=== PATIENT | male | born 1980 | race African-American/Black ===

== ENCOUNTER 2024-07-07 10:29 | Outpatient (REF) | payer MEDICAID, SELFPAY ==
--- NOTE | ~2024-07-07 | XR_ITS ---
EXAMINATION: XR SHOULDER, RIGHT CLINICAL INFORMATION: Chronic right shoulder pain COMPARISON: None available. TECHNIQUE: AP external rotation, Grashey, scapular Y, and axillary views of the right shoulder. FINDINGS: The bones and soft tissues are normal. No fracture. Glenohumeral and acromioclavicular alignment is anatomic with normal joint space. No abnormal soft tissue calcifications. XR/XR shoulder RT min 2V IMPRESSION: Normal right shoulder. Electronically signed by: Jacky Underwood MD 07/07/2024 04:00 PM EDT
== END 2024-07-07 10:30 | disposition home or self-care (01) ==
LOC: HO.HHCX 10:29
PROVIDERS: Visit Provider Internal Medicine Geriatric Medicine
DX: M25.511 Pain in right shoulder (principal)
CPT/HCPCS: 73030

== ENCOUNTER 2024-08-02 09:06 | Outpatient (AMB) | payer MEDICAID, SELFPAY ==
--- NOTE | 2024-08-02 09:11 | MHC.OFFVIS ---
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 Patient reports his pain has been present for about 10 months, states after carried his son. His pain had gotten worse while working. He has pain with ROM, states feeling a tearing sensation in his shoulder. Denies numbness or tingling. Naproxen caused stomach upset so he d/c medication. 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 He reports his pain started after carrying his son and worsened with activities at work. He currently states he has pain and tearing sensation in his right shoulder that is aggravated with ROM, sleeping, laying on sides, stair use and pushing activities. He denies any numbness or tingling. [facility] Social History (Updated 08/02/24 @ 09:19 by Kayla Chino [facility]) Patient Tobacco Use Status: Never used Tobacco Current occupational status: employed Current occupation: [employer], right hand dominant Review of Systems Const All systems reviewed & are unremarkable except as noted in HPI and below Physical Exam Vital Signs: BMI result Body Mass Index 26.1 Const General: cooperative, healthy appearing, comfortable, no acute distress, well developed and alert Orientation/consciousness: patient oriented x3 HEENT Head: Yes normal to inspection, Yes normocephalic and Yes atraumatic Eyes General: appearance normal, both eyes and all related structures Resp Effort & Inspection: normal respiratory effort and able to speak in complete sentences Cardio Rate: regular rate Peripheral pulses: Peripheral pulses 2+ throughout GI Palpation (GI): Soft to palpation Skin Lesions: no lesions Rashes: no rashes Neuro General: patient oriented x3 Extrem Other: Right shoulder: Normal to inspection. Tenderness over the bicipital groove and along the deltoid region of the shoulder. Forward flexion to 175, external rotation to 90, internal rotation to S1. 5/5 RTC strength. Negative Haro and cross body abduction. NVI. ? Results Reviewed Results Reviewed: Xrays were obtained in the office today and personally reviewed by me of the right shoulder negative for acute abnormalities. Assessment & Plan Assessment & Plan (1) Bursitis of right shoulder: Code(s): M75.51 - Bursitis of right shoulder Category: Medical Plan We discussed options which include PT, NSAIDs and injections. The patient will defer on the injection today and proceed with PT and NSAIDs. If symptoms persist, she will contact me for an injection, otherwise, PRN. Orders: Orders PT Evaluation and Treatment Today M75.51 - Bursitis of right shoulder Patient Instructions: Scribed for Teresa Barahona PA-C, by Nikita Diaz medical physics researcher, on 08/02/2024 at 8:45 AM EST.? I, Teresa Barahona PA-C, have personally reviewed and agree with the information entered by the scribe. Coding Level of Care Code New Pt Level 3 (05637) Complex EM visit Add On G2211 Diagnoses Bursitis of right shoulder M75.51
[2024-08-02 09:16] VITALS: BMI 26.1
== END 2024-08-02 09:58 | disposition home or self-care (01) ==
LOC: HO.HOS 09:06
PROVIDERS: PCP Internal Medicine Geriatric Medicine; Visit Provider Physician Assistant
DX: M75.51 Bursitis of right shoulder (principal)
CPT/HCPCS: 99203

== ENCOUNTER → 2024-08-02 09:06 | Outpatient (BNVA) | payer MEDICAID, SELFPAY | PROVIDERS: PCP Internal Medicine Geriatric Medicine; Visit Provider Physician Assistant | DX: M75.51 Bursitis of right shoulder (principal) | CPT/HCPCS: 99212 ==

== ENCOUNTER 2024-11-29 09:54 | Outpatient (REF) | payer MEDICAID, SELFPAY ==
--- OUTSIDE RECORDS SUMMARY | 2024-11-29 11:28 | XMS_ITS | Encounter Summary ---
Author Organization [employer] Address [address] [facility] [address] [place] [address] Care Team Providers Care Hospitalist Name Role Phone Name, Dayton XIAO Primary Care Provider [phone] Reason for Visit * Reason Comments initial visit Encounter Details Date Type Department Care Team (Late st Contact Info) Description 11/29/2024 9:00 AM EST Office Visit [facility] [address], [place] [id number] Name, MD Dayton [address] [place] [address] Elevated blood pressure reading (Primary Dx); Screening for diabetes mellitus; Screening for cholesterol level; Screen for STD (sexually transmitted disease); Screening for prostate cancer Social History Tobacco Use Types Packs/Day Years Used Date Smoking Tobacco: Never Passive Smoke Exposure: Never Smokeless Tobacco: Never Tobacco Cessation:Counseling Given: Not Answered Alcohol Use Standard Drinks/Week Comments Yes 0 (1 standard drink = 0.6 oz pur e alcohol) rarely Depression Answer Date Recorded Patient Health Questionnaire-9 Score 0 11/29/2024 Patient Health Questionnaire-9 Score 0 11/29/2024 Last PHQ-9: Questionnaire Data Not on file 0 11/29/2024 Housing Stability Answer Date Recorded What is your housing situati on today? I do not have housing (Staying with others, in a hotel, in a prison, living outside on the street, on a beach, in a car, or in a park 11/29/[address] you li ve. Do you have problems with any of the following? Inadequate heat 11/29/2024 Food Insecurity Answer Date Recorded Within the past 12 months, y ou worried that your food would run out before you got money to buy more: Never True 11/29/2024 Within the past 12 months,th e food you bought just didn't last and you didn't have enough money to get more: Never True 01/2025 Transportation Answer Date Recorded In the past 12 months, has l ack of transportation kept you from medical appts, meetings, work or from getting things needed for daily living? No 11/29/2024 Utilities Answer Date Recorded In the past 12 months, has t he electric, gas, oil or water company threatened to shut off services in your home? No 11/29/2024 Depression Answer Date Recorded Patient Health Questionnaire-2 Score 0 11/29/2024 Internet Access Answer Date Recorded Internet Access Q1 Yes 11/29/2024 Internet Access Q2 Not on file 11/29/2024 Sex and Gender Information Value Date Recorded Sex Assigned at Male 03/01/2024 9:18 AM EDT Legal Sex Male 9:01 AM EDT Gender Identity Male 03/01/2024 9:18 AM EDT Sexual Orientation Don't know 03/01/2024 9: 18 AM EDT Occupation Industry Job Start Date Job End Date [employer] Not on file Not on file Not on file documented as of this encounter Last Filed Vital Signs Vital Sign Reading Time Taken Comments Blood Pressure 131/89 11/29/2024 9:23 AM EST Pulse 62 11/29/2024 9:11 AM EST Temperature 36.6 ??C (97.9 ??F) 11/29/2024 9:11 AM ES T Respiratory Rate 21 11/29/2024 9:11 AM EST Oxygen Saturation 98% 11/29/2024 9:11 AM EST Inhaled Oxygen Concentration - - Weight 80.8 kg (178 lb 3.2 oz) 11/29/2024 9:11 A M EST Height 177.8 cm (5' 10 ) 11/29/2024 9:11 AM EST Body Mass Index 25.57 11/29/2024 9:11 AM EST documented in this encounter Progress Notes * Dayton Daigle MD - 11/29/2024 9:00 AM EST Subjective Patient ID: Adam Bryant is a 44 y.o. male who presents for initial visit. Patient comes to establish primary care. The patient speaks [place] Creole and he is seen with the help of an motor vehicle parts interpreter. He is asymptomatic. Initial blood pressure was elevated but repeat was much better. The patient does not smoke cigarettes, does not drink alcohol, does not use illicit drugs. He works at a local [employer] for [employer]. The patient is and monogamous. She denies any previous surgeries. He does not know of any family history of any medical problems. He does not use any medications. Today he agreed with Tdap and flu vaccinations. He also agreed with evaluation with fasting blood work. Review of Systems Constitutional: Negative for chills, fatigue and fever. HENT: Negative for sore throat. Respiratory: Negative for cough, chest tightness and shortness of breath. Cardiovascular: Negative for chest pain, palpitations and leg swelling. Gastrointestinal: Negative for abdominal pain and blood in stool. Visit Vitals BP 131/89 Pulse 62 Temp 97.9 ??F (36.6 ??C) (Temporal) Resp 21 Ht 5' 10 (1.778 m) Wt 178 lb 3.2 oz (80.8 kg) SpO2 98% BMI 25.57 kg/m?? Smoking Status Never BSA 2 m?? Objective Physical Exam Constitutional: Appearance: Normal appearance. Cardiovascular: Rate and Rhythm: Normal rate and regular rhythm. Heart sounds: No murmur heard. Pulmonary: Effort: Pulmonary effort is normal. No respiratory distress. Breath sounds: No wheezing, rhonchi or rales. Abdominal: Palpations: Abdomen is soft. Tenderness: There is no abdominal tenderness. Musculoskeletal: Right lower leg: No edema. Left lower leg: No edema. Neurological: Mental Status: He is alert. Assessment/Plan Diagnoses and all orders for this visit: Elevated blood pressure reading Comments: Repeat blood pressure is better. I did not recommend any medications. He recommended evaluation with fasting blood work listed below. Tdap and flu vaccination today. Will contact the patient with theresults of the testing for further recommendations as needed. Screening for diabetes mellitus - CBC auto differential; Future - Comprehensive Metabolic Panel; Future Screening for cholesterol level - Lipid Panel, Standard; Future Screen for STD (sexually transmitted disease) - HIV-1/2 Antigen and Antibodies, Fourth Generation, with Reflexes; Future - RPR (Monitor) with Reflex to Titer; Future - Hepatitis C Antibody with Reflex to HCV, RNA, Quantitative, Real-Time PCR; Future - Hepatitis B surface antigen, EIA; Future - Hepatitis B Surface Antibody, Qualitative; Future - Chlamydia/N. Gonorrhoeae RNA, TMA, Urogenitial Screening for prostate cancer - PSA,Total; Future Other orders - Flu vaccine greater than or equal to 6 months old, preservative free IM - Tdap vaccine greater than or equal to 7 years old IM documented in this encounter Plan of Treatment Scheduled Orders Name Type Priority Associated Diagnoses Orde r Schedule CBC auto differential Lab Routine Screening for diabetes mellitus Expected: 11/29/2024 (Approximate), Expires: 11/29/2025 Comprehensive Metabolic Panel Lab Routine Screening for diabetes mellitus Expected: 11/29/2024 (Approximate), Expires: 11/29/2025 Lipid Panel, Standard Lab Routine Screening for cholesterol level Expected: 11/29/2024 (Approximate), Expires: 11/29/2025 PSA,Total Lab Routine Screening for prostate cancer Expected: 11/29/2024, Expires: 11/29/2025 HIV-1/2 Antigen and Antibodies, Fourth Generation, with Reflexes Lab Routine Screen for STD (sexually transmitted disease) Expected: 11/29/2024 (Approximate), Expires: 11/29/2025 RPR (Monitor) with Reflex to??Titer Lab Routine Screen for STD (sexually transmitted disease) Expected: 11/29/2024, Expires: 11/29/2025 Hepatitis C Antibody with Reflex to HCV, RNA, Quantitative, Real-Time PCR Lab Routine Screen for STD (sexually transmitted disease) Expected: 11/29/2024, Expires: 11/29/2025 Hepatitis B surface antigen, EIA Lab Routine Screen for STD (sexually transmitted disease) Expected: 11/29/2024 (Approximate), Expires: 11/29/2025 Hepatitis B Surface Antibody, Qualitative Lab Routine Screen for STD (sexually transmitted disease) Expected: 11/29/2024 (Approximate), Expires: 11/29/2025 Chlamydia/N. Gonorrhoeae RNA, TMA, Urogenitial Microbiology Routine Screen for STD (sexually transmitted disease) Ordered: 11/29/2024 documented as of this encounter Visit Diagnoses Diagnosis Elevated blood pressure reading- Primary Elevated blood pressure reading without diagnosis of hypertension Screening for diabetes mellitus Screening for cholesterol level Screen for STD (sexually transmitted disease) Screening examination for venereal disease Screening for prostate cancer Special screening for malignant neoplasm of prostate documented in this encounter Additional Health Concerns Assessment Noted Time PHQ-9 Depression Total Score: 0 11/30/19 9:40 AM EST documented as of this encounter Care Teams Hospitalist Relationship Specialty Start Date End Date Name, MD [place] [address] [place] [address] PCP - General Internal Medicine 11/29/24 documented as of this encounter
--- OUTSIDE RECORDS SUMMARY | 2024-11-29 11:28 | XMS_ITS | Encounter Summary ---
Author Organization [employer] Address [address] [facility] [address] [place] [address] Care Team Providers Care Associate Agent Insurance Sales Name Role Phone Unavailable Primary Care Provider Unavailabl e Reason for Visit * Reason Comments Pre-visit Planning SDOH unable to reach LVM Encounter Details Date Type Department Care Team (Late st Contact Info) Description 11/22/2024 Patient Outreach [facility] [address] [place] [address] Name, MD [place] [address] [place] [address] Pre-visit Planning (SDOH unable to reach LVM ) Social History Tobacco Use Types Packs/Day Years Used Date Smoking Tobacco: Never Passive Smoke Exposure: Never Smokeless Tobacco: Never Alcohol Use Standard Drinks/Week Comments Never 0 (1 standard drink = 0.6 oz pur e alcohol) Sex and Gender Information Value Date Recorded Sex Assigned at Male 03/01/2024 9:18 AM EDT Legal Sex Male 9:01 AM EDT Gender Identity Male 03/01/2024 9:18 AM EDT Sexual Orientation Don't know 03/01/2024 9: 18 AM EDT documented as of this encounter Progress Notes * Mikayla Corona - 11/22/2024 1:40 PM EST MIRANDA Dumont placed outbound call to patient to complete pre-visit planning. No answer at this time. Patient name and were not confirmed. CC left voicemail requesting return call. Direct contactinformation provided. documented in this encounter Plan of Treatment Not on file documented as of this encounter Visit Diagnoses Not on filedocumented in this encounter
--- OUTSIDE RECORDS SUMMARY | 2024-11-29 11:28 | XMS_ITS | Encounter Summary ---
Author Organization [employer] Address [address] [facility] [address] [place] [address] Care Team Providers Care Head Of Business Development Name Role Phone Name, Dayton XIAO Primary Care Provider [phone] Encounter Details Date Type Department Care Team (Latest Contact Info) Description 11/29/2024 Travel Social History Tobacco Use Types Packs/Day Years Used Date Smoking Tobacco: Never Passive Smoke Exposure: Never Smokeless Tobacco: Never Alcohol Use Standard Drinks/Week Comments Yes 0 [...] with others, in a hotel, in a assisted, living outside on the street, on a [...] on file documented as of this encounter Plan of Treatment Not on file documented as of this encounter Visit Diagnoses Not on filedocumented in this encounter Additional Health Concerns Assessment Noted Time PHQ-9 Depression Total Score: 0 11/30/19 9:40 AM EST documented as of this encounter Care Teams Head Of Business Development Relationship Specialty Start Date End Date Name, MD [place] [address] [place] [address] PCP - General Internal Medicine 11/29/24 documented as of this encounter
--- OUTSIDE RECORDS SUMMARY | 2024-11-29 11:28 | XMS_ITS | Clinical Summary ---
Author Organization [employer] Address [address] [facility] [address] [place] [address] Care Team Providers Care Stamp Clerk Name Role Phone NameDayton MD Primary Care Provider [phone] Allergies No known active allergies Encounters Date Type Department Care Team Description 11/29/2024 9:00 AM EST Office Visit [facility] [address] [place] [id number] [place] Daigle MD Elevated blood pressure reading (Primary Dx); Screening for diabetes mellitus; Screening for cholesterol level; Screen for STD (sexually transmitted disease); Screening for prostate cancer 11/29/2024 Travel 11/22/2024 Patient Outreach [facility] [address] [place] [address] [place] Daigle MD Pre-visit Planning (SDOH unable to reach [facility] ) 09/21/2024 Telephone [facility] [address] [place] [address] [phone] Antoine Briceño MD New patient appt. 08/31/2024 Telephone [facility] [address] [place] [address] [phone] Aurelio Shine [place] from Last 3 Months Immunizations Name Administration Dates Next Due Influenza, seasonal, injectable, preservative fr ee 11/29/2024 Tdap 11/29/2024 Family History Medical History Relation Name Comments No Known Problems Brother No Known Problems Daughter No Known Problems Father No Known Problems Mother Relation Name Status Comments Brother Daughter Father Mother Social History Tobacco Use Types Packs/Day Years [...] with others, in a hotel, in a fpc, living outside on the street, on a [...] file Not on file Not on file Last Filed Vital Signs Vital Sign Reading [...] Mass Index 25.57 11/29/2024 9:11 AM EST Plan of Treatment Health Maintenance Due Date Last Done Comments HIV Screening 1980 Lipid Panel 1980 Alcohol/Substance Use Screening 1992 Family Planning (PISQ) 01/27/1995 Hepatitis C Screening 01/27/1998 Hepatitis B Vaccines (1 of 3 - 19+ 3-dose series) 01/27/1999 COVID-19 Vaccine (2023-2 5 season) 2024 Depression Screening 11/29/2025 11/29/2024, 11/29/2024 SDOH Screening 11/29/2025 11/29/2024 Tobacco Screening 11/29/2025 11/29/2024 Zoster Vaccines (1 of 2) 01/27/2030 DTaP/Tdap/Td Vaccines (2 - T d or Tdap) 11/29/2034 11/29/2024 RSV Patients and Patients Aged 60 years or older (1 - 1-dose 75+ series) 01/27/2055 Influenza Vaccine Completed 11/29/2024 HIB Vaccines Aged Out No longer eligi ble based on patient's age to complete this topic HPV Vaccines Aged Out No longer eligi ble based on patient's age to complete this topic Hepatitis A Vaccines Aged Out No long er eligible based on patient's age to complete this topic IPV Vaccines Aged Out No longer eligi ble based on patient's age to complete this topic Meningococcal Vaccine Aged Out No zainab dennise eligible based on patient's age to complete this topic Pneumococcal Vaccine: Pediatrics (0 to 5 Years) and At-Risk Patients (6 to 49) Years) Aged Out No longer eligible b ased on patient's age to complete this topic RSV under 20 months Aged Out No longe r eligible based on patient's age to complete this topic Rotavirus Vaccines Aged Out No longer eligible based on patient's age to complete this topic Insurance [facility] C3 Care Teams Stamp Clerk Relationship Specialty Start Date End Date Name, MD [place] [address] [place] [address] PCP - General Internal Medicine 11/29/24
[2024-11-29 11:30] LABS: MANUAL DIFF FLAG NO
[2024-11-29 11:52] LABS: Basophils Percent Auto 1.4 % (0-2); Eosinophils Absolute Auto 0.1 X10*3/uL (0.0-0.4); Eosinophils Percent Auto 2.4 % (0-4); Hematocrit 39.8 % (42.0-52.0); Hemoglobin 14.2 g/dl (14.0-18.0); Imm Gran Abs Auto 0.01 X10*3/uL (0.00-0.03); Imm Gran Pct Auto 0.3 % (0.0-0.4); Lymphocytes Absolute Auto 1.3 X10*3/uL (1.2-4.9); Lymphocytes Percent Auto 45.6 % (20-40); Mean Corpuscular HGB Conc 35.7 g/dl (31.0-36.0); Mean Corpuscular Hemoglobin 29.9 pg (27.0-33.0); Mean Corpuscular Volume 83.8 fL (80.0-98.0); Mean Platelet Volume 8.7 fL (9.4-12.4); Monocytes Absolute Auto 0.3 X10*3/uL (0.1-1.2); Monocytes Percent Auto 11.6 % (2-11); Neutrophils Absolute Auto 1.1 x10*3/uL (2.0-8.3); Neutrophils Percent Auto 38.7 % (45-73); Platelet Count 284 X10*3/uL (160-400); Red Blood Count 4.75 X10*6/uL (4.60-5.80); Red Cell Distribution Width 12.4 % (11.0-16.0); White Blood Count 2.9 X10*3/uL (4.8-10.8)
[2024-11-29 12:23] LABS: Alanine Aminotransferase 17 U/L (0-40); Albumin Level 4.4 g/dL (3.5-5.0); Alkaline Phosphatase 49 U/L (39-117); Anion Gap 9 (12-20); Aspartate Amino Transferase 26 U/L (5-37); Bilirubin Total 0.9 mg/dL (0.0-1.0); Blood Urea Nitrogen 12 mg/dL (9-16); Calcium 9.3 mg/dL (8.4-10.2); Carbon Dioxide 26 mmol/L (22-29); Chloride 109 mmol/L (96-108); Cholesterol 147 mg/dL (<200); Estimated Glomerular Filt Rate > 60; Glucose Random 80 mg/dL (60-115); HDL Cholesterol 48 mg/dL (>40); LDL Cholesterol Calculated 87 mg/dL (<100); Potassium 3.7 mmol/L (3.3-5.1); Sodium 140 mmol/L (135-145); Total Protein 8.1 g/dL (6.5-8.0); Triglycerides 61 mg/dL (<150)
[2024-11-29 12:34] LABS: HBS Num1 21.68 mIU/mL (0-7.99); HBsAGNum1 0.36 S/CO (0.00-0.99); HIV AB/AG Nonreactive (Nonreactive); HIV Num 1 0.06 S/CO (0.00-0.99); Hepatitis B Surface Antigen Negative (Negative); ~HepC Num1 0.14 S/CO (0.00-0.79); ~Hepatitis B Surface Antibody REACTIVE (Nonreactive); ~Hepatitis C Antibody Nonreactive (Nonreactive)
[2024-11-29 12:37] LABS: Prostate Specific Antigen 0.94 ng/mL (<0.05-4.0)
[2024-11-30 11:58] LABS: RPR Rapid Plasma Reagin NON-REACTIVE (NON-REACTIVE)
[2024-11-30 18:19] LABS: CT PCR NOT DETECTED (Not Detect.); NG PCR NOT DETECTED (Not Detect.)
== END 2024-11-29 09:55 | disposition home or self-care (01) ==
LOC: HO.HHCL 09:54
PROVIDERS: Visit Provider Internal Medicine Geriatric Medicine
DX: Z11.3 Encounter for screening for infections with a predominantly sexual mode of transmission (principal); Z13.1 Encounter for screening for diabetes mellitus; Z13.220 Encounter for screening for lipoid disorders; Z12.5 Encounter for screening for malignant neoplasm of prostate
CPT/HCPCS: 80053; 80061; 84153; 85025; 86592; 86706; 86803; 87340; 87389; 87491; 87591

== ENCOUNTER 2025-09-12 14:46 | Outpatient (REF) | payer MEDICAID, SELFPAY ==
[2025-09-12 16:16] LABS: MANUAL DIFF FLAG NO
[2025-09-12 16:23] LABS: Hematocrit 38.3 % (42.0-52.0); Hemoglobin 13.6 g/dl (14.0-18.0); Imm Gran Abs Auto 0.01 X10*3/uL (0.00-0.03); Imm Gran Pct Auto 0.2 % (0.0-0.4); Lymphocytes Absolute Auto 2.4 X10*3/uL (1.2-4.9); Mean Corpuscular HGB Conc 35.5 g/dl (31.0-36.0); Mean Corpuscular Hemoglobin 29.7 pg (27.0-33.0); Mean Corpuscular Volume 83.6 fL (80.0-98.0); NRBC Abs Auto 0.000 X10*3/uL (0.0-0.012); NRBC Pct Auto 0.0 /100WBC (0.0-0.2); Platelet Count 298 X10*3/uL (160-400); Red Blood Count 4.58 X10*6/uL (4.60-5.80); White Blood Count 5.1 X10*3/uL (4.8-10.8)
== END 2025-09-12 14:47 ==
LOC: HO.HHCL 14:46
PROVIDERS: PCP Internal Medicine Geriatric Medicine; Visit Provider Internal Medicine Geriatric Medicine
DX: D72.819 Decreased white blood cell count, unspecified (principal)
CPT/HCPCS: 36415; 85025